=== PATIENT | female | born 1965 | race Caucasian/White ===

== ENCOUNTER 2016-05-15 04:23 | Observation (INO) | payer SELFPAY ==
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
--- NOTE | ~2016-05-15 | DS ---
Discharge Summary [id number] [place]. [address] NAME: TERRY WALSH : 63 STATUS : DIS Fabio PAT#: [id number] AGE: 51 ADM/REG DATE : 05/15/16 MR#: [id number] REPORT SERV DATE: 05/17/16 DICTATED BY: ENDY WU DATE: 05/16/16 REPORT STATUS : Draft TRANSCRIBED BY: MODL DATE: 05/16/16 ADMISSION DATE: 05/15/2016 DISCHARGE DATE: 05/16/2016 DISCHARGE DIAGNOSES: 1. Chronic obstructive pulmonary disease exacerbation. 2. Allergic rhinitis. 3. Noncardiac chest pain, stress test, and cardiac markers were negative. 4. Morbid obesity. 5. Bipolar disease. HISTORY OF PRESENT ILLNESS: This is a 51-year-old patient, who was transferred from [facility] when she arrived the hospital with a complaint of chest pain. Please see dictated H and P. HOSPITAL COURSE: She was admitted to the hospital with chest pain for evaluation. Had a nuclear stress test which was negative and low probability for cardiac chest pain. She was also noted to have wheezing, then coughing and nasal congestion along with this pollen season started. The patient was treated for COPD exacerbation with steroid, bronchodilator, and antihistamine, and she improved significantly. We are going to continue to use a tapering dose of prednisone and allergic rhinitis treatment recommended, continue to use the Symbicort. Overall, had a stable hospitalization and will be discharged home and continuing treatment for the COPD exacerbation. DISCHARGE MEDICATIONS: Prednisone tapering down from 40 down to 10 every two days. Continue doxycycline for five more days. Continue her Symbicort. Continue to use loratadine 10 mg once a day, Flonase twice a day. Continue other medications for her diabetes, hypertension, and COPD. DISPOSITION: The patient is discharged to home in stable condition. EKL/MODL Endy Wu M.D. / [id number] CC: Endy Wu M.D.
[~2016-05-15 04:23] MED LIST: ADVAIR250 INH; HABIT14 TOP; LORTAB10 PO; MEVACOR40 MG PO; NEUR300 PO; NEUR800 PO; PROVENTSOL INH; SEROQUEL400 MG PO; SYMBICORT 160/41 INH INH; SYMBICORT 80/4.1 INH INH; VENTOLIN HFA INH
[2016-05-15] MEDS ORDERED: NORV10 PO (04:31)
[2016-05-15] MEDS ORDERED: ZOCOR20 PO (04:31)
[2016-05-15] MEDS ORDERED: GLUCOPHAGE1000 MG PO (04:34)
[2016-05-15 06:48] LABS: BASOPHILS 0.5 %; BASOPHILS ABSOLUTE 0.04 10/3/uL (0.0-0.16); EOSINOPHILS 3.5 %; EOSINOPHILS ABSOLUTE 0.29 10/3/uL (0.0-0.53); HEMOGLOBIN 13.9 g/dL (12.0-16.0); IMMATURE GRANULOCYTES 0.1 %; IMMATURE GRANULOCYTES ABSOLUTE 0.01 10/3/uL (0.0-0.11); LYMPHOCYTES 25.8 %; LYMPHOCYTES ABSOLUTE 2.14 10/3/uL (0.67-4.30); MEAN CORPUS HGB CONC 33.4 g/dL (32.0-36.0); MEAN CORPUSCULAR HEMOGLOB 30.5 pg (26.0-34.0); MEAN PLATELET VOLUME 10.4 fL (9.2-13.0); MONOCYTES 7.2 %; NEUTROPHILS 62.9 %; PLATELET COUNT 212 10/3/uL (150-400); RBC DISTRIBUTION WIDTH 15.4 % (12.0-16.0); RED CELL COUNT 4.55 10/6/uL (4.0-5.6); WHITE BLOOD CELLS 8.3 10/3/uL (4.5-10.5)
[2016-05-15 06:49] LABS: INTERNATIONAL NORMAL RATI 1.1 UNITS (-); PARTIAL THROMBO TIME 25.8 SEC (22.5-37.2); PROTIME (NOT ORD) 13.7 SEC (12.0-14.5)
[2016-05-15 06:50] LABS: HEMATOCRIT 41.6 % (36.0-48.0); MANUAL DIFF NO %; MEAN CORPUSCULAR VOLUME 91.4 fL (80-100)
[2016-05-15 07:07] LABS: A/G RATIO 0.8 (0.7-1.9); ALBUMIN 2.8 G/DL (3.5-5.0); BUN (BLOOD UREA NITROGEN) 7 MG/DL (6-23); CALCIUM, SERUM 8.2 MG/DL (8.5-10.4); CHLORIDE, SERUM 106 MMOL/L (96-112); CO2 (CARBON DIOXIDE) 26 MMOL/L (24-34); CREATININE 0.61 MG/DL (0.55-1.02); GFR AFRICAN AMERICAN 121 ML/MIN (>=60); GFR NON AFRICAN AMERICAN 104 ML/MIN (>=60); GLOBULIN 3.6 G/DL (2.5-4.1); POTASSIUM, SERUM 3.8 MMOL/L (3.5-5.3); SGOT(AST) 15 U/L (5-40); SGPT(ALT) 19 U/L (5-65); SODIUM, SERUM 141 MMOL/L (135-148); TOTAL BILIRUBIN 0.6 MG/DL (0-1.2); TOTAL PROTEIN 6.4 G/DL (6.0-8.5); TROPONIN I <0.02 NG/ML (<0.05)
[2016-05-15 07:08] LABS: ALKALINE PHOSPHATASE 67 U/L (45-117); GLUCOSE, SERUM 93 MG/DL (60-99)
[2016-05-15 07:21] LABS: B NATRIURETIC PEPTIDE (BNP) 50.7 PG/ML (< 100.0)
[2016-05-15 10:46] LABS: GLYCOHEMOGLOBIN (HbA1c) 6.3 % (4.7-6.1)
[2016-05-16 05:25] LABS: BASOPHILS 0.1 %; BASOPHILS ABSOLUTE 0.01 10/3/uL (0.0-0.16); EOSINOPHILS 0 %; HEMOGLOBIN 15.1 g/dL (12.0-16.0); IMMATURE GRANULOCYTES 0.2 %; IMMATURE GRANULOCYTES ABSOLUTE 0.02 10/3/uL (0.0-0.11); LYMPHOCYTES 5.9 %; LYMPHOCYTES ABSOLUTE 0.65 10/3/uL (0.67-4.30); MEAN CORPUS HGB CONC 32.5 g/dL (32.0-36.0); MEAN CORPUSCULAR HEMOGLOB 30.1 pg (26.0-34.0); MEAN CORPUSCULAR VOLUME 92.4 fL (80-100); MEAN PLATELET VOLUME 11.3 fL (9.2-13.0); MONOCYTES 3.6 %; MONOCYTES ABSOLUTE 0.39 10/3/uL (0.21-1.20); NEUTROPHILS 90.2 %; NEUTROPHILS ABSOLUTE 9.91 10/3/uL (2.02-8.40); PLATELET COUNT 264 10/3/uL (150-400); RBC DISTRIBUTION WIDTH 14.8 % (12.0-16.0); RED CELL COUNT 5.02 10/6/uL (4.0-5.6)
[2016-05-16 05:49] LABS: BUN (BLOOD UREA NITROGEN) 10 MG/DL (6-23); CHLORIDE, SERUM 102 MMOL/L (96-112); CO2 (CARBON DIOXIDE) 28 MMOL/L (24-34); CREATININE 0.77 MG/DL (0.55-1.02); GFR AFRICAN AMERICAN 103 ML/MIN (>=60); GFR NON AFRICAN AMERICAN 89 ML/MIN (>=60); SODIUM, SERUM 141 MMOL/L (135-148)
[2016-05-16 06:04] LABS: CALCIUM, SERUM 9.3 MG/DL (8.5-10.4); GLUCOSE, SERUM 140 MG/DL (60-99)
[2016-05-16 06:49] LABS: HEMATOCRIT 46.4 % (36.0-48.0)
[2016-05-16 06:50] LABS: MANUAL DIFF NO %; WHITE BLOOD CELLS 9.2 10/3/uL (4.5-10.5)
[2016-05-16] MEDS ORDERED: DORYX100 MG PO (12:44)
[2016-05-16] MEDS ORDERED: FLONASE NAS (12:46)
[2016-05-16] MEDS ORDERED: CLARIT10 PO ×2 (12:46→12:47)
[2016-05-16] MEDS ORDERED: STERAPRED DS10 MG (12:46)
== END 2016-05-16 13:13 | disposition home or self-care (01) ==
LOC: CDU2 04:23
PROVIDERS: Internal Medicine
DX: J44.1 Chronic obstructive pulmonary disease with (acute) exacerbation (principal); J30.9 Allergic rhinitis, unspecified; R07.89 Other chest pain; I10 Essential (primary) hypertension; K64.8 Other hemorrhoids; F31.9 Bipolar disorder, unspecified; F17.200 Nicotine dependence, unspecified, uncomplicated; E11.9 Type 2 diabetes mellitus without complications; E66.01 Morbid (severe) obesity due to excess calories; Z68.39 Body mass index [BMI] 39.0-39.9, adult; Z87.01 Personal history of pneumonia (recurrent); Z98.890 Other specified postprocedural states; Z90.49 Acquired absence of other specified parts of digestive tract; Z90.710 Acquired absence of both cervix and uterus; Z80.0 Family history of malignant neoplasm of digestive organs; Z82.5 Family history of asthma and other chronic lower respiratory diseases; Z82.49 Family history of ischemic heart disease and other diseases of the circulatory system; Z88.1 Allergy status to other antibiotic agents; Z88.2 Allergy status to sulfonamides; Z88.6 Allergy status to analgesic agent; Z91.018 Allergy to other foods; Z79.84 Long term (current) use of oral hypoglycemic drugs; Z79.899 Other long term (current) drug therapy
CPT/HCPCS: 78452; 80048; 80053; 82962; 83036; 83735; 83880; 84443; 84484; 85025; 85610; 85730; 93017; 94640; 96372; 96374; 96375; 96376; A9270-GY; A9502; G0378; J2405; J2920